=== PATIENT | male | born 1985 | race African-American/Black ===

== ENCOUNTER 2018-10-18 08:47 | Emergency (ER) | payer OTHER ==
--- NOTE | 2018-10-18 09:53 | ER Document Report ---
HPI - HPI Time Seen by Provider: 10/18/18 09:14 Pain Level: 3 Context: Patient is a 33-year-old male who presents emergency department with a chief complaint of a sore throat for the past 3 days. He states that he has had some cold chills. Denies any actual fever. States that he has tried some teas, cough drops, Excedrin, and Tylenol with little relief. - CONSTITUTIONAL Constitutional: REPORTS: Chills - EENT EENT: REPORTS: Sore Throat - NEURO Neurology: DENIES: Headache, Weakness - CARDIOVASCULAR Cardiovascular: DENIES: Chest pain - RESPIRATORY Respiratory: DENIES: Trouble Breathing, Coughing - GASTROINTESTINAL Gastrointestinal: DENIES: Abdominal Pain - URINARY Urinary: DENIES: Dysuria - MUSCULOSKELETAL Musculoskeletal: DENIES: Extremity pain, Back Pain, Neck Pain, Swelling - DERM Skin Color: Normal Skin Problems: None Past Medical History - Social History Smoking Status: Never Smoker Family History: Reviewed & Not Pertinent Patient has suicidal ideation: No Patient has homicidal ideation: No Neurological Medical History: Denies: Hx Seizures Renal/ Medical History: Denies: Hx Peritoneal Dialysis GI Medical History: Reports: Hx Gastroesophageal Reflux Disease Vertical Provider Document - CONSTITUTIONAL Agree With Documented VS: Yes Exam Limitations: No Limitations General Appearance: No Apparent Distress - INFECTION CONTROL TRAVEL OUTSIDE OF THE [place] IN LAST 30 DAYS: No - HEENT HEENT: Atraumatic, Normocephalic, PERRLA, Pharyngeal Tenderness, Pharyngeal Er ythema. negative: Conjuctival Injection, Pharyngeal Exudate, Tympanic Membrane Red, Tympanic Membrane Bulging - NECK Neck: Normal Inspection, Supple, Lymphadenopathy-Left, Lymphadenopathy-Right - RESPIRATORY Respiratory: Breath Sounds Normal, No Respiratory Distress - CARDIOVASCULAR Cardiovascular: Regular Rate, Regular Rhythm, No Murmur Pulses: Normal: Radial - MUSCULOSKELETAL/EXTREMETIES Musculoskeletal/Extremeties: FROM - NEURO Level of Consciousness: Awake, Alert, Appropriate Motor/Sensory: No Motor Deficit, No Sensory Deficit - DERM Integumentary: Warm, Dry, No Rash Course - Re-evaluation Re-evalutation: 10/18/18 10:34 Patient's rapid strep test is positive. He will be treated with Decadron and penicillin here in the emergency department. He will follow-up with his primary care provider in regards to this visit. I do not suspect patient has a peritonsillar abscess, as his uvula is midline. His Monospot was negative. Verbal discharge instructions were given to the patient. They verbalized understanding. They are stable for discharge. - Vital Signs Vital signs: Temp Pulse Resp BP Pulse Ox 98.6 F 82 16 151/89 H 100 10/18/18 08:56 10/18/18 08:56 10/18/18 08:56 10/18/18 08:56 10/18/18 08:56 Discharge - Discharge Clinical Impression: Strep pharyngitis, Sore throat Condition: Stable Disposition: HOME, SELF-CARE Additional Instructions: You were seen today in the emergency department for a sore throat. You have strep throat. You were treated here in the emergency department with penicillin and Decadron. Please follow-up with your primary care provider within the next 3 to 5 days in regards to this visit. Please continue to take Tylenol 1000 mill grams every 6 hours for your pain. If you develop difficulty breathing, shortness of breath, or have any symptoms that are worrisome to you, please retu rn to the emergency department. Forms: Return to Work Referrals: HAO HANSEN MD [Primary Care Provider] - Follow up in 3-5 days
[2018-10-18] MEDS ORDERED: DEXAMETHASONE SOD PHOS INJ 10 MG/1 ML VIAL IM ONE (10:32)
[2018-10-18] MEDS ORDERED: PENICILLIN G BENZATHINE 1.2 MILLION UNIT/2 ML DISP.SYRIN IM ONE (10:32)
[2018-10-18 11:02] VITALS: BP 131/88
== END 2018-10-18 11:00 | disposition home or self-care (01) ==
LOC: ER 08:47
DX: J02.0 Streptococcal pharyngitis (principal)
CPT/HCPCS: 99283; 96372; 36415; 87880; 86308; J0561; J1100